=== PATIENT | female | born 1950 | race Caucasian/White ===

== ENCOUNTER → 2019-05-08 | Outpatient (CLI) | payer OTHER | LOC: CAT 09:14 | DX: R91.1 Solitary pulmonary nodule (principal); R93.89 Abnormal findings on diagnostic imaging of other specified body structures; J84.10 Pulmonary fibrosis, unspecified ==

== ENCOUNTER → 2019-06-27 | Outpatient (CLI) | payer OTHER ==
--- NOTE | 2019-07-09 17:36 | SLE ---
[facility] [place] [address] POLYSOMNOGRAPHY STUDY Name: CAROLINA PAEZ Room #: [facility]#: [id number] Admission: 06/27/19 Attend Phys: Pablito Kahn MD Discharge: Date of : 50 Report #: [id number] THIS REPORT FOR: //name// CC: FAM physician/PCP Pablito Kahn MD DATE OF SERVICE: 06/27/2019 ATTENDING PHYSICIAN: Dr. Pablito Kahn. The patient is 69 years old who weighs 190 pounds with a BMI of 33.1. The patient's Dolliver score was 14. The patient underwent home sleep study performed by [facility]. Total recording time was 443 minutes. During the night study, the patient had 45 central apneas, 4 obstructive apneas, no mixed apneas and 70 hypopneas. The patient's apnea hypopnea index was 26.8 per hour with a supine index of 22 per hour. Nocturnal oximetry study revealed an average oxygen saturation of 93% with the lowest of 75%. 36 minutes were spent in oxygen saturation less than 90% and another 9 minutes with saturation of less than 85%. Mean heart rate was 59 beats per minute with a maximum of 89 beats per minute. IMPRESSION: 1. Moderate sleep apnea-hypopnea syndrome at an AHI of 26 per hour. 2. Nocturnal hypoxia secondary to obstructive sleep apnea. RECOMMENDATIONS: 1. The patient should return for in-lab CPAP titration study. Alternate treatment option would include home auto CPAP titration. 2. Once the patient is optimally treated with CPAP, then follow up in 4-6 weeks to assess compliance and to document clinical improvement. 3. Weight loss is strongly advised. 4. Avoid [employer] depressants. 5. Cautioned regarding driving until symptoms of sleep apnea resolve with the use of CPAP. <ELECTRONICALLY SIGNED> By: Dustin Miranda MD 07/09/19 [id number] Dustin Miranda MD /nt
== END ==
LOC: SLEEPLAB 09:10
DX: G47.33 Obstructive sleep apnea (adult) (pediatric) (principal); G47.30 Sleep apnea, unspecified; R09.02 Hypoxemia